=== PATIENT | female | born 1975 | race Caucasian/White ===

== ENCOUNTER 2023-07-09 09:05 | Day surgery (SDC) | payer OTHER | END 2023-07-15 22:46 | disposition home or self-care (01) | LOC: MOI MAM 09:05 → MOI US 09:30 → MOI MAM 09:30 | DX: D05.01 Lobular carcinoma in situ of right breast (principal) | CPT/HCPCS: 19083; 19084; 77065; 88305; 88342; 88360; A4648; G0279 ==

== ENCOUNTER 2023-08-30 11:59 | Day surgery (SDC) | payer OTHER ==
[~2023-08-30] VITALS: Ht 160 cm; Wt 73.5 kg
--- NOTE | 2023-08-30 15:05 | NUR ---
08/30/23 1505 LAURA ENRIQUEZ PT NPO UNTIL XRAY FOR MEDIPORT PLACEMENT. XRAYS TECH GREGORY CALLED SAID DR. LANDRY READ XRAY: PLACEMENT CORRECT. THEN PT GIVEN BEVERAGE. END NOTE ORSC.RDS
[2023-08-30 15:35] VITALS: BP 117/80
== END 2023-08-30 15:34 | disposition home or self-care (01) ==
LOC: ORSCSDS 11:59
PROVIDERS: Surgery
PROC: 0JH60WZ Insertion of Totally Implantable Vascular Access Device into Chest Subcutaneous Tissue and Fascia, Open Approach (ICD-10-PCS; principal; 2023-08-30 13:30)
DX: C50.811 Malignant neoplasm of overlapping sites of right female breast (principal); Z17.0 Estrogen receptor positive status [ER+]; I10 Essential (primary) hypertension; Z79.899 Other long term (current) drug therapy
CPT/HCPCS: 77001; C1788; J0690; J1642; J2001; J2704; J2795; J3010; J7120

== ENCOUNTER 2024-03-17 09:00 | Day surgery (SDC) | payer OTHER | END 2024-03-17 22:00 | disposition home or self-care (01) | LOC: MOI US 09:00 | DX: C50.811 Malignant neoplasm of overlapping sites of right female breast (principal); C17.0 Malignant neoplasm of duodenum | CPT/HCPCS: 19285; 77065; A4648; G0279 ==

== ENCOUNTER 2024-03-23 07:13 | Day surgery (SDC) | payer MEDICAID ==
[~2024-03-23] VITALS: Ht 160 cm; Wt 71.4 kg
[2024-03-23] MEDS ORDERED: Bupivacaine 0.5% HCl 5 MG/ML 30MLVIAL ONE (07:31)
[2024-03-23] MEDS ORDERED: MULVITA PO (07:35)
--- NOTE | 2024-03-23 07:45 | NUR ---
03/23/24 0745 CHRISTY ROSENBERG PT SBA TO RADIOLOGY PREOPERATIVELY
[2024-03-23] MEDS ORDERED: Methylene Blue 1% 100 MG/10 ML VIAL ONE (07:46)
[2024-03-23] MEDS ORDERED: CeFAZolin Sodium 2,000 MG VIAL ONE (08:17)
[2024-03-23] MEDS ORDERED: NS 50 ML IV ONE (08:17)
[2024-03-23] MEDS ORDERED: Lactated Ringer's 1,000 ML IV ONE (08:45)
[2024-03-23] MEDS ORDERED: Ropivacaine 0.5% HCL/PF 5 MG/ML 30ML Vial ONE (09:10)
[2024-03-23] MEDS ORDERED: EPINEPhrine HCl 1 MG/ML 1ML Amp ONE (09:10)
[2024-03-23] MEDS ORDERED: Scopolamine Hydrobromide Patch ONE (09:12)
[2024-03-23] MEDS ORDERED: propofoL 20 ML IV ONE (09:18)
[2024-03-23] MEDS ORDERED: FentaNYL Citrate 50 MCG/ML 2 ML Injection ONE ×2 (09:18→11:37)
[2024-03-23] MEDS ORDERED: Bupivacaine 0.5% HCl 5 MG/ML 30MLVIAL INJ ONE (09:57)
[2024-03-23] MEDS ORDERED: Dexamethasone Sod Phos 10 MG/ML 1ML VIAL ONE (10:04)
[2024-03-23] MEDS ORDERED: Ondansetron HCl 2 MG / ML 2ML Vial ONE ×2 (10:04→15:09)
[2024-03-23] MEDS ORDERED: Rocuronium Bromide 10 MG/ML 5ML Injection IV ONE (10:04)
[2024-03-23] MEDS ORDERED: HYDROmorphone HCl/Pf 1MG SYR ONE (10:39)
[2024-03-23] MEDS ORDERED: Phenylephrine HCl 100 MCG/ML-NS 10MLSYR (1MG/10ML) ONE (10:47)
--- NOTE | 2024-03-23 11:10 | NUR ---
03/23/24 1110 Valerie Taveras RADIOLOGY PHONED WITH CONFIRMATION OF DR. JACOBSON STATING THAT BREAST HAS LISETTE IN PLACE.
[2024-03-23] MEDS ORDERED: Ropivacaine 0.5% HCl/Pf 5 MG/ML 20ML VIAL INJ ONE (11:31)
[2024-03-23] MEDS ORDERED: EPINEPhrine HCl 1 MG/ML 1ML Amp XX ONE (11:34)
[2024-03-23] MEDS ORDERED: Sugammadex Sodium 200 MG/2ML SDV (100 MG/ML) ONE (12:07)
--- NOTE | 2024-03-23 12:43 | NUR ---
03/23/24 1243 IVELISSE LUA PT BROUHGT OUT ON 8L O2 VIA NON-REBREATHER. DECREASED TO 4L AND NOW AGAIN TO 2L. PT SLEEPING SOUNDLY. CURRENTLY O2 SAT IS 100% ON 2L
[2024-03-23 13:03] VITALS: BP 125/83
--- NOTE | 2024-03-23 13:09 | NUR ---
03/23/24 130 IVELISSE LUA PT DOES HAVE 3 INCISION AREAS LOWER ABD. EXOFIN ON ALL. NO DRESSING PT DOES HAVE INCSION AREA RIGHT UPPER CHEST NEAR AXILLA- STERISTRIP NTOED CDI
[2024-03-23] MEDS ORDERED: HYDROcodone 5-APAP 325 TAB ONE (14:32)
== END 2024-03-23 15:40 | disposition home or self-care (01) ==
LOC: ORSCSDS 07:13 → NM 08:00 → ORSCSDS 08:00
PROVIDERS: Surgery
PROC: 0HBT0ZZ Excision of Right Breast, Open Approach (ICD-10-PCS; principal; 2024-03-23 09:15)
PROC: 0UB74ZZ Excision of Bilateral Fallopian Tubes, Percutaneous Endoscopic Approach (ICD-10-PCS; principal; 2024-03-23 09:15)
PROC: 0UB24ZZ Excision of Bilateral Ovaries, Percutaneous Endoscopic Approach (ICD-10-PCS; principal; 2024-03-23 09:15)
PROC: 0JPT0WZ Removal of Totally Implantable Vascular Access Device from Trunk Subcutaneous Tissue and Fascia, Open Approach (ICD-10-PCS; principal; 2024-03-23 09:15)
PROC: 07B50ZX Excision of Right Axillary Lymphatic, Open Approach, Diagnostic (ICD-10-PCS; principal; 2024-03-23 09:15)
DX: C50.811 Malignant neoplasm of overlapping sites of right female breast (principal); Z17.0 Estrogen receptor positive status [ER+]
CPT/HCPCS: 38792; 76098; 88305; 88307; A9270; A9520; J0171; J0690; J1100; J1170; J2371; J2405; J2704; J2795; J3010; Q9968

== ENCOUNTER 2024-04-11 09:24 | Day surgery (SDC) | payer OTHER ==
[2024-04-11] VITALS (18 sets, daily range): BP systolic 91–148; BP diastolic 49–90
[~2024-04-11] VITALS: Ht 157.5 cm; Wt 70.4 kg
[~2024-04-11 09:24] MED LIST: MULVITA PO
[2024-04-11] MEDS ORDERED: Lactated Ringer's 1,000 ML IV SCH ×2 (10:30→14:15)
[2024-04-11] MEDS ORDERED: CeFAZolin Sodium 2,000 MG in NS 100 ML IV SCH (10:30)
[2024-04-11] MEDS ORDERED: Bupivacaine 0.5% HCl 5 MG/ML 30MLVIAL ONE (11:24)
[2024-04-11] MEDS ORDERED: FentaNYL Citrate 50 MCG/ML 2 ML Injection ONE ×3 (11:36→14:22)
[2024-04-11] MEDS ORDERED: propofoL 20 ML IV ONE (11:36)
[2024-04-11] MEDS ORDERED: Methylene Blue 1% 100 MG/10 ML VIAL ONE (11:40)
[2024-04-11] MEDS ORDERED: Dexamethasone Sod Phos 10 MG/ML 1ML VIAL ONE (12:00)
[2024-04-11] MEDS ORDERED: Ondansetron HCl 2 MG / ML 2ML Vial ONE (13:22)
[2024-04-11] MEDS ORDERED: FentaNYL Citrate 50 MCG/ML 2 ML Injection IV PRN (14:10)
[2024-04-11] MEDS ORDERED: HYDROcodone 5-APAP 325 TAB PO PRN (14:15)
[2024-04-11] MEDS ORDERED: Acetaminophen 325 MG TABLET PO PRN (14:15)
[2024-04-11] MEDS ORDERED: Ondansetron 4 MG TAB PO PRN (14:15)
[2024-04-11] MEDS ORDERED: Ondansetron HCl 2 MG / ML 2ML Vial IV PRN (14:15)
[2024-04-11] MEDS ORDERED: Ketorolac Tromethamine 30mg Vial IV PRN (14:20)
[2024-04-11] MEDS ORDERED: Morphine Sulfate 4 MG/1 ML Injection ONE (14:22)
[2024-04-11] MEDS ORDERED: Metoclopramide HCl 5MG / ML 2ML Vial IV PRN (18:20)
[2024-04-11] MEDS ORDERED: Promethazine HCl 25 MG Tab PO PRN (19:45)
[2024-04-11] MEDS ORDERED: Docusate Sodium 100 MG Cap PO SCH (21:00)
[2024-04-12 04:29] VITALS: BP 111/65
--- NOTE | 2024-04-12 05:22 | NUR ---
SHIFT SUMMARY POD 1 R MASTECTOMY PT ABLE TO SLEEP T/O NIGHT. PT MEDICATED X1 THIS AM FOR PAIN. PT HAD NAUSEA AND VOMITING AT THE BEGINING OF SHIFT BUT ABLE TO GET UNDER CONTROL T/O SHIFT. PT NOW TOLERATING PO INTAKE, VOIDING. PT IND IN THE ROOM. BINDER AND GAUZE IN PLACE AND INTACT. GIOVANNI X2 IN THE R CHEST OUTPUT IS SANGENIUOS FLUID, DRESSING CHANGED LAST NIGHT. VSS. NO OTHER CONCERNS AT THIS TIME, CALL LIGHT WITHIN REACH
--- NOTE | 2024-04-12 08:00 | NUR ---
NURSING SURG DAYSHIFT: Assumed care of pt at approx 0700. A/O, very pleasant, cooperative w/care. C/O 3-11/16 R CW discomfort r/t recent R mastectomy, treating w/positioning and rest. Incision to R CW, dressing and binder in place, GIOVANNI drain x2 draining serosanguineous fluid. Mild general weakness though able to ambulate independently and w/o difficulty. HRR, no c/o CP/pressure, SBP 100, HR 80, no noted edema. L/S cta t/o, O2 sat 100% on RA, denies dyspnea, no noted cough. Abd SNT, BT+, voiding w/o difficulty per pt. PIV x1, s/l. No s/s of acute distress this a.m. Discussed plan of care and current medical tx, pt anticipating discharge home. Denies any current needs, call light in reach, cont to monitor.
[2024-04-12] MEDS ORDERED: HYDR1TAB94 PO (12:38)
--- NOTE | 2024-04-12 12:57 | NUR ---
NURSING SURG DISCHARGE SUMMARY: Pt has done well t/o the a.m. Independent in room w/minimal difficulty, able to perform ADL's independently. Site remains stable w/no active bleed noted, dressing and binder in place. Experienced discomfort which was reduced w/hydrocodone x1. Seen by surgeon, discharge home d/o received. Pt and spouse verbalized understanding of all written and verbal discharge instructions. PIV dc'd w/cath intact, Rx provided for pain management medications, will escort from unit via w/c.
== END 2024-04-12 13:10 | disposition home or self-care (01) ==
LOC: ORSCMMR 09:24 → ORD 09:24 → ORSCMMR 09:25 → ORD 11:15 → ORSCMMR 14:50 → SURS 14:50 → ORD 04-12 13:10 → ORSCMMR 04-12 13:10 → SURS 04-12 13:10
PROVIDERS: Surgery
PROC: 0HBT0ZZ Excision of Right Breast, Open Approach (ICD-10-PCS; principal; 2024-04-11 11:15)
PROC: 07B50ZX Excision of Right Axillary Lymphatic, Open Approach, Diagnostic (ICD-10-PCS; principal; 2024-04-11 11:15)
DX: C50.811 Malignant neoplasm of overlapping sites of right female breast (principal); Z17.0 Estrogen receptor positive status [ER+]; C77.3 Secondary and unspecified malignant neoplasm of axilla and upper limb lymph nodes
CPT/HCPCS: 88305; 88309; 88342; A9270; J0690; J1100; J1885; J2270; J2405; J2704; J2765; J3010; J7120; Q9968

== ENCOUNTER 2024-06-13 05:59 | Day surgery (SDC) | payer OTHER ==
[2024-06-13] VITALS (13 sets, daily range): BP systolic 120–160; BP diastolic 78–104
[~2024-06-13] VITALS: Ht 160 cm; Wt 70.4 kg
[~2024-06-13 05:59] MED LIST changes: +ANASTROZOLE1 M7 PO; +HYDR1TAB94 PO; +VERZENIO150 MG PO
[2024-06-13] MEDS ORDERED: CeFAZolin Sodium 2,000 MG in NS 100 ML IV SCH (06:20)
[2024-06-13] MEDS ORDERED: Lactated Ringer's 1,000 ML IV SCH (06:20)
[2024-06-13] MEDS ORDERED: propofoL 20 ML IV ONE (06:50)
[2024-06-13] MEDS ORDERED: Midazolam HCl 1MG / ML 2ML Vial ONE (06:50)
[2024-06-13] MEDS ORDERED: FentaNYL Citrate 50 MCG/ML 2 ML Injection ONE (06:50)
[2024-06-13] MEDS ORDERED: Dexamethasone Sod Phos 10 MG/ML 1ML VIAL ONE (06:51)
[2024-06-13] MEDS ORDERED: Ondansetron HCl 2 MG / ML 2ML Vial ONE (06:51)
--- NOTE | 2024-06-13 06:59 | NUR ---
History, Chart, Medications and Allergies reviewed before start of procedure. Pre-Op teaching done. Pt verbalizes understanding. Patient confirms NPO status and agrees with scheduled surgery. ALL BELONGINGS PLACED UNDER PT BED. PT HANDED GLASSES TO SPOUSE AT BS.
[2024-06-13] MEDS ORDERED: Bupivacaine 0.5% HCl 5 MG/ML 30MLVIAL ONE (07:06)
[2024-06-13] MEDS ORDERED: Scopolamine Hydrobromide Patch TD SCH (07:15)
[2024-06-13] MEDS ORDERED: Acetaminophen 500 MG Tab PO SCH (07:15)
[2024-06-13] MEDS ORDERED: propofoL 60 ML IV ONE ×2 (07:23→08:20)
[2024-06-13] MEDS ORDERED: Ketamine HCl 100 MG / ML 5ML Vial ONE (07:52)
--- NOTE | 2024-06-13 08:57 | NUR ---
06/13/24 0857 Carrol Bullock LEFT BREAST SPECIMEN ON FORMALIN AT 0851 AND OUT OF BODY AT 0830
--- NOTE | 2024-06-13 09:55 | NUR ---
INTO STEP.PT A&OX4. DENIES PAIN OR NAUSEA. BREAST BINDER IN PLACE-C/D/I. GIOVANNI TO RIGHT BREAST TO BULB SUCTION WITH SMALL AMOUNT OF SANGINOUS DRAINAGE. PT SHIVERING SLIGHTLY-WARM BLANKET PROVIDED.
[2024-06-13] MEDS ORDERED: HYDROcodone 5-APAP 325 TAB PO PRN (10:35)
[2024-06-13] MEDS ORDERED: Droperidol 5 mg/2 ml Vial IV ONE (10:50)
--- NOTE | 2024-06-13 11:25 | NUR ---
REVIEWED DISCHARGE INSTRUCTIONS WITH PT AND HER SPOUSE JAKOB. BOTH VERBALIZE UNDERSTANDING. PT PROVIDED WITH 4X4'S, SPECIMEN CUPS, GIOVANNI/DRAIN DISCHARGE INSTRUCTIONS, AND EMESIS BAG. PT DENIES NAUSEA AT PRESENT AND HAS TOLERATED PO FOOD AND FLUIDS. PT REPORTS 3/10 LEFT BREAST/INCISIONAL PAIN THAT IS "TOLERABLE." BREAST BINDER REMAINS C/D/I. PT DISCHARGED TO HOME, OUT VIA WHEELCHAIR WITH BELONGINGS AND DISCHARGE INSTRUCTIONS ON HAND.
== END 2024-06-13 11:25 | disposition home or self-care (01) ==
LOC: ORSCMMR 05:59 → ORD 07:30 → ORSCMMR 07:30
PROVIDERS: Surgery
PROC: 0HBU0ZZ Excision of Left Breast, Open Approach (ICD-10-PCS; principal; 2024-06-13 07:30)
DX: C50.911 Malignant neoplasm of unspecified site of right female breast (principal); Z40.01 Encounter for prophylactic removal of breast; N60.12 Diffuse cystic mastopathy of left breast; L82.1 Other seborrheic keratosis; Z17.0 Estrogen receptor positive status [ER+]; Z17.21 Progesterone receptor positive status; Z17.32 Human epidermal growth factor receptor 2 negative status; Z79.899 Other long term (current) drug therapy
CPT/HCPCS: 88307; A9270; J0690; J1100; J2250; J2405; J2704; J3010; J7120

== ENCOUNTER → 2025-03-23 | Outpatient (CLI) | payer OTHER ==
[2025-03-23 11:27] LABS: BASOPHILS ABSOLUTE AUTO 0.01 K/mm3 (0.00-0.23); BASOPHILS PERCENT AUTO 1 % (0-2); EOSINOPHILS ABSOLUTE AUTO 0.00 K/mm3 (0.00-0.68); EOSINOPHILS PERCENT AUTO 0 % (0-6); Hematocrit 39.3 % (33.0-51.0); Hemoglobin 14.3 g/dL (11.5-16.0); Mean Corpuscular HGB Conc 36.4 g/dL (31.5-36.5); Mean Corpuscular Volume 98 fL (80-100); NRBC ABSOLUTE 0.00 K/mm3 (0.00-0.02); NRBC Auto 0.0 /100 WBC (0.0-0.2); Platelet Count 172 K/mm3 (150-400); RDW Coefficient Variation 13.6 % (11.7-14.2); RDW Standard Deviation 48.5 fL (35.1-46.3)
[2025-03-23 11:35] LABS: Alanine Aminotransfer (ALT/SGP 44.0 U/L (12-78); Albumin, Blood 4.0 g/dL (3.4-5.0); Albumin/Globulin Ratio 1.1 (0.8-1.8); Anion Gap 13.0 mmol/L (3-11); Aspartate Aminotrans (AST/SGOT 33.0 U/L (12-37); Bilirubin, Total 0.8 mg/dL (0.1-1.0); Blood Urea Nitrogen 12.0 mg/dL (8-24); CO2, Blood 28.0 mmol/L (21-32); Calcium, Blood 9.4 mg/dL (8.5-10.1); Chloride, Blood 98.0 mmol/L (98-108); Creatinine, Blood 1.1 mg/dL (0.40-1.00); Globulin, Blood 3.7 g/dL (2.2-4.0); Glucose, Blood 108.0 mg/dL (70-99); Potassium, Blood 4.0 mmol/L (3.5-5.5); Sodium, Blood 135.0 mmol/L (136-145); Total Protein, Blood 7.7 g/dL (6.4-8.2)
[2025-03-23 11:52] LABS: BAND PERCENT MAN 6 % (0-8); IMMATURE GRAN ABSOLUTE AUTO 0.00 K/mm3 (0.00-0.10); IMMATURE GRAN PERCENT AUTO 0 % (0-1); LYMPHOCYTES ABSOLUTE AUTO 0.49 K/mm3 (0.84-5.20); LYMPHOCYTES PERCENT AUTO 30 % (21-46); MONOCYTES ABSOLUTE AUTO 0.44 K/mm3 (0.16-1.47); MONOCYTES PERCENT AUTO 27 % (4-13); NEUTROPHILS ABSOLUTE AUTO 0.70 K/mm3 (1.96-9.15); NEUTROPHILS ABSOLUTE MAN 0.72 K/mm3 (1.96-9.15); NEUTROPHILS PERCENT AUTO 43 % (41-73); SEG NEUTROPHILS PERCENT MAN 38 % (41-73)
[2025-03-23 11:53] LABS: BASOPHILS ABSOLUTE MAN 0.06 K/mm3 (0.00-0.23); BASOPHILS PERCENT MAN 4 % (0-2); LYMPHOCYTES ABSOLUTE MAN 0.45 K/mm3 (0.84-5.20); LYMPHOCYTES PERCENT MAN 28 % (21-46); MONOCYTES ABSOLUTE MAN 0.36 K/mm3 (0.16-1.47); MONOCYTES PERCENT MAN 22 % (4-13); MYELOCYTE ABSOLUTE MAN 0.03 K/mm3 (0.00-0.00); MYELOCYTE PERCENT MAN 2 % (0-0)
== END ==
LOC: LAB 11:22 → LAB SHORT 11:22
PROVIDERS: Physician Assistant
DX: R10.9 Unspecified abdominal pain (principal)
CPT/HCPCS: 80053; 83690; 85025

== ENCOUNTER 2025-04-27 10:18 | Emergency (ER) | payer OTHER ==
[~2025-04-27] VITALS: Ht 160 cm; Wt 68.0 kg
[2025-04-27 10:55] LABS: BASOPHILS ABSOLUTE AUTO 0.05 K/mm3 (0.00-0.23); BASOPHILS PERCENT AUTO 1 % (0-2); EOSINOPHILS ABSOLUTE AUTO 0.03 K/mm3 (0.00-0.68); EOSINOPHILS PERCENT AUTO 1 % (0-6); Hematocrit 32.1 % (33.0-51.0); Hemoglobin 11.7 g/dL (11.5-16.0); IMMATURE GRAN ABSOLUTE AUTO 0.01 K/mm3 (0.00-0.10); IMMATURE GRAN PERCENT AUTO 0 % (0-1); LYMPHOCYTES ABSOLUTE AUTO 0.97 K/mm3 (0.84-5.20); LYMPHOCYTES PERCENT AUTO 23 % (21-46); MONOCYTES ABSOLUTE AUTO 0.33 K/mm3 (0.16-1.47); MONOCYTES PERCENT AUTO 8 % (4-13); Mean Corpuscular HGB Conc 36.4 g/dL (31.5-36.5); Mean Corpuscular Volume 99 fL (80-100); NEUTROPHILS ABSOLUTE AUTO 2.85 K/mm3 (1.96-9.15); NEUTROPHILS PERCENT AUTO 67 % (41-73); NRBC ABSOLUTE 0.00 K/mm3 (0.00-0.02); NRBC Auto 0.0 /100 WBC (0.0-0.2); Platelet Count 174 K/mm3 (150-400); RDW Coefficient Variation 14.6 % (11.7-14.2); RDW Standard Deviation 52.6 fL (35.1-46.3)
[2025-04-27 11:43] LABS: Alanine Aminotransfer (ALT/SGP 52.0 U/L (12-78); Albumin, Blood 3.6 g/dL (3.4-5.0); Albumin/Globulin Ratio 1.0 (0.8-1.8); Anion Gap 9.0 mmol/L (3-11); Aspartate Aminotrans (AST/SGOT 31.0 U/L (12-37); Bilirubin, Total 1.1 mg/dL (0.1-1.0); Blood Urea Nitrogen 11.0 mg/dL (8-24); CO2, Blood 27.0 mmol/L (21-32); Calcium, Blood 9.2 mg/dL (8.5-10.1); Chloride, Blood 104.0 mmol/L (98-108); Creatinine, Blood 0.8 mg/dL (0.40-1.00); Globulin, Blood 3.5 g/dL (2.2-4.0); Glucose, Blood 97.0 mg/dL (70-99); Potassium, Blood 3.9 mmol/L (3.5-5.5); Sodium, Blood 136.0 mmol/L (136-145); Total Protein, Blood 7.1 g/dL (6.4-8.2)
[2025-04-27 15:15] VITALS: BP 135/86
[2025-04-27] MEDS ORDERED: AMOCLA875 PO (15:58)
== END 2025-04-27 16:04 | disposition home or self-care (01) ==
LOC: ER 10:18
PROVIDERS: Physician Assistant
DX: H95.53 Postprocedural seroma of ear and mastoid process following a procedure on the ear and mastoid process (principal); Z79.899 Other long term (current) drug therapy; Z59.89 Other problems related to housing and economic circumstances
CPT/HCPCS: 71260; 80053; 83605; 85025; 99284-25; Q9967

== ENCOUNTER → 2025-06-19 | Outpatient (CLI) | payer OTHER | LOC: LAB 17:27 | DX: Z01.419 Encounter for gynecological examination (general) (routine) without abnormal findings (principal) ==